=== PATIENT | male | born 1975 | race Caucasian/White ===

== ENCOUNTER 2017-05-07 11:00 | Inpatient (IN) | payer SELFPAY ==
[2017-05-07 15:04] VITALS: BMI 20.6
--- NOTE | 2017-05-07 22:11 | HP ---
COWS - Scale Resting Pulse: 0= [place] 80 or Below Sweatin=Flushed/Facial Moisture Restless Observation: 3= Extraneous Movement Pupil Size: 0= Normal to Room Light Bone or Joint Aches: 1= Mild Discomfort Runny Nose/ Eye Tearin= Runny Nose/Eyes GI Upset > 30mins: 3= Vomiting/Diarrhea (2x) Tremor Observation: 1= Tremor [place], Not Seen Yawning Observation: 4= Several Times/Minute Anxiety or Irritability: 1=Feels Anxious/Irritable Goose Flesh Skin: 3=Piloerection COWS Score: 20 Admission ROS [facility] - [facility] Chief Complaint: Heroin withdrawal symptoms Allergies/Adverse Reactions: Allergies Allergy/AdvReac Type Severity Reaction Status Date / Time No Known Allergies Allergy Verified 05/07/17 17:24 History of Present Illness: 41 yo male with hx of IV heroin and nicotine dependence is here seeking detox. PMHX: depression. Reports overdose x 5, last overdose 2 months ago. Last detox 6 months ago, unable to recall. Reports longest period of sobriety 2 years ago while in skilled nursing . Denies suicidal / homicidal ideation or suicide attempts. Exam Limitations: No Limitations - Ebola screening Have you traveled outside of the country in the last 21 days: No Have you had contact with anyone from an Ebola affected area: No Have you been sick,other than usual withdrawal symptoms: No - Review of Systems Constitutional: Chills, Loss of Appetite, Changes in sleep, Weakness, Unintentional Wgt. Loss EENT: reports: No Symptoms Reported Respiratory: reports: No Symptoms reported Cardiac: reports: No Symptoms Reported GI: reports: Diarrhea, Nausea, Poor Appetite, Poor Fluid Intake, Vomiting, Indigestion, Abdominal cramping : reports: No Symptoms Reported Musculoskeletal: reports: Joint Pain Integumentary: reports: No Symptoms Reported Neuro: reports: No Symptoms reported Endocrine: reports: Excessive Sweating, Change in Weight Hematology: reports: No Symptoms Reported Psychiatric: reports: Orientated x3, Agitated Other Systems: Reviewed and Negative Patient History - Patient Medical History Hx Anemia: No Hx Asthma: No Hx Chronic Obstructive Pulmonary Disease (COPD): No Hx Cancer: No Hx Cardiac Disorders: No Hx Congestive Heart Failure: No Hx Hypertension: No Hx Hypercholesterolemia: No Hx Pacemaker: No HX Cerebrovascular Accident: No Hx Seizures: No Hx Diabetes: No Hx Gastrointestinal Disorders: No Hx Liver Disease: Yes (Hep C ) Hx Genitourinary Disorders: No Hx Sexually Transmitted Disorders: No Hx Renal Disease (ESRD): No Hx Thyroid Disease: No Hx Human Immunodeficiency Virus (HIV): No Hx Hepatitis C: Yes Hx Depression: No Hx Suicide Attempt: No Hx Bipolar Disorder: No Hx Schizophrenia: No - Patient Surgical History Past Surgical History: No Hx Neurologic Surgery: No Hx Cataract Extraction: No Hx Cardiac Surgery: No Hx Lung Surgery: No Hx Breast Surgery: No Hx Breast Biopsy: No Hx Abdominal Surgery: No Hx Appendectomy: No Hx Cholecystectomy: No Hx Genitourinary Surgery: No Hx Section: No Hx Orthopedic Surgery: No Anesthesia Reaction: No - PPD History Previous Implant?: Yes Documented Results: Negative w/o proof PPD to be Administered?: Yes - Reproductive History Patient is a Female of Child Bearing Age (11 -55 yrs old): No - Smoking Cessation Smoking history: Current every day smoker Have you smoked in the past 12 months: Yes Aproximately how many cigarettes per day: 20 Hx Chewing Tobacco Use: No Initiated information on smoking cessation: Yes 'Breaking Loose' booklet given: 05/07/17 - Substance & Tx. History Hx Alcohol Use: Yes Substance Use Type: Cocaine, Heroin Hx Substance Use Treatment: Yes (Six months ago, does not recall the name of the facility ) - Substances Abused Heroin Route: Injection Frequency: Daily Amount used: 12 bags Age of first use: 33 Date of Last Use: 05/06/17 Cocaine Frequency: Daily Amount used: 3 bags Age of first use: 15 Date of Last Use: 05/06/17 Family Disease History - Family Disease History Family Disease History: Other: Father (, Cancer ), Mother (decrease, Cancer ) Admission Physical Exam BHS - Vital Signs Vital Signs: Vital Signs - 24 hr 05/07/17 15:02 Temperature 97.2 F L Pulse Rate 63 Respiratory 20 Rate Blood Pressure 83/48 - Physical General Appearance: Yes: Disheveled, Moderate Distress, Thin, Irritable, Sweating, Anxious HEENTM: Yes: EOMI, Hearing grossly Normal, Normal ENT Inspection, Normocephalic , Normal Voice, ADELINE, Pharynx Normal, Tm's normal Respiratory: Yes: Chest Non-Tender, Normal Breath Sounds, No Respiratory Distress, No Accessory Muscle Use Neck: Yes: No masses,lesions,Nodules, Trachea in good position Breast: Yes: Breast Exam Deferred Cardiology: Yes: Regular Rhythm, Regular Rate Abdominal: Yes: Normal Bowel Sounds, Non Tender, Flat, Soft Genitourinary: Yes: Within Normal Limits Back: Yes: Normal Inspection Musculoskeletal: Yes: full range of Motion, Gait Steady, Pelvis Stable Extremities: Yes: Normal Capillary Refill, Normal Inspection, Normal Range of Motion, Non-Tender, Tremors Neurological: Yes: Within Normal Limits, supervisor communications and signals II-XII NML intact, Fully Oriented, Alert, Motor Strength 5/5, Depressed Affect Integumentary: Yes: Normal Color, Dry, Warm, Track Eldridge (multiple healing states on both forearms without signs of infection) Lymphatic: Yes: Within Normal Limits - Diagnostic (1) IV drug user Current Visit: Yes Status: Acute (2) Irritable mood Current Visit: Yes Status: Acute (3) Opioid dependence with withdrawal Current Visit: Yes Status: Acute (4) Weight loss Current Visit: Yes Status: Acute (5) Dehydration Current Visit: Yes Status: Acute (6) Diarrhea Current Visit: Yes Status: Acute Qualifiers: Diarrhea type: unspecified type Qualified Code(s): R19.7 - Diarrhea, unspecified (7) Cocaine dependence Current Visit: Yes Status: Acute Qualifiers: Substance use status: uncomplicated Qualified Code(s): F14.20 - Cocaine dependence, uncomplicated Cleared for Admission [facility] - Detox or Rehab [facility] Level of Care: Medically Managed Detox Regimen/Protocol: Methadone [facility] Breath Alcohol Content Breath Alcohol Content: 0 Urine Drug Screen - Results Drug Screen Negative: No Urine Drug Screen Results: THC-Marijuana, STEVEN-Cocaine, OPI-Opiates
[2017-05-07] MEDS ORDERED: P-EPHED 60MG/TRIPROLIDI 2.5MG TABLET PO PRN (22:15)
[2017-05-07] MEDS ORDERED: MAGNESIUM CITRATE 300 ML BOTTLE PO PRN (22:15)
[2017-05-07] MEDS ORDERED: MAGNESIUM HYDROX 2400MG/30ML ORAL SUSPENSION 30 ML CUP PO PRN (22:15)
[2017-05-07] MEDS ORDERED: guaiFENesin/D-METHORPHAN HB 10 ML UNIT-DOSE CUPS PO PRN (22:15)
[2017-05-07] MEDS ORDERED: MENTHOL/PHENOL 1 EACH UD MM PRN (22:15)
[2017-05-07] MEDS ORDERED: LOPERAMIDE HCL 2 MG CAPSULE PO PRN (22:15)
[2017-05-07] MEDS ORDERED: IBUPROFEN 400 MG TABLET (FP) PO PRN (22:15)
[2017-05-07] MEDS ORDERED: MAG HYDROX/AL HYDROX/SIMETH 30 ML UNIT-DOSE CUP PO PRN (22:15)
[2017-05-07] MEDS ORDERED: NICOTINE POLACRILEX 2 MG GUM BC PRN (22:15)
[2017-05-07] MEDS ORDERED: METHADONE HCL 10 MG TABLET (FOR DETOX USE ONLY) PO ONE ×2 (22:15→23:00)
[2017-05-07] MEDS: diazePAM 5 MG TABLET PO PRN (22:46)
[2017-05-08] MEDS ORDERED: METHADONE HCL 10 MG TABLET (FOR DETOX USE ONLY) PO ONE (10:00)
[2017-05-08 10:41] LABS: CHLORIDE 108 mmol/L (98-107); POTASSIUM 3.9 mmol/L (3.5-5.1); SODIUM 142 mmol/L (136-145)
--- NOTE | 2017-05-08 10:47 | EKG ---
Test Reason : Blood Pressure : / mmHG Vent. Rate : 075 BPM Atrial Rate : 075 BPM P-R Int : 154 ms QRS Dur : 088 ms QT Int : 408 ms P-R-T Axes : 063 058 044 degrees QTc Int : 455 ms NORMAL SINUS RHYTHM POSSIBLE LEFT ATRIAL ENLARGEMENT BORDERLINE ECG NO PREVIOUS ECGS AVAILABLE Confirmed by CHARLES CHA, ZOE ([id number]) on 05/08/2017 10:46:45 AM Referred By: Confirmed By:ZOE SOTO MD
[2017-05-08 10:49] LABS: ALBUMIN 3.3 g/dl (3.4-5.0); ALK PHOS 61 U/L (45-117); ANION GAP 11 (8-16); BILIRUBIN,TOTAL 0.5 mg/dL (0.2-1.0); BLOOD UREA NITROGEN 13 mg/dL (7-18); CALCIUM 8.4 mg/dL (8.5-10.1); CO2 23 mmol/L (21-32); CREATININE 0.7 mg/dL (0.7-1.3); GLUCOSE,RANDOM 83 mg/dL (74-106); SGOT/AST 53 U/L (15-37); SGPT/ALT 119 U/L (12-78); TOT PROT 7.2 g/dl (6.4-8.2)
[2017-05-08] MEDS: PRENATAL VITAMINS W/ FOLIC ACID TABLET (FP) PO SCH (11:00)
[2017-05-08] MEDS: NICOTINE 21 MG/24 HOURS TOPICAL PATCH TD SCH ×2 (11:00)
--- NOTE | 2017-05-08 11:27 | CONSULT ---
[facility] Psychiatric Consult - Data Date of interview: 05/08/17 Admission source: [facility] Identifying data: First admission to [facility] for this 41 y/o male seeking detox treatment on for heroin,cannabis and cocaine dependence.Patient introduces self as ,a father of two,domiciled, unemployed and supported on food stamps. Substance Abuse History: Discussed in this interview.Mr Lebron declines to provide details about his addictions.Simply admits to using heroin,marihuana and cocaine " for a long time." Refer to current [facility] report for more information : Smoking history: Current every day smoker. Have you smoked in the past 12 months: Yes. Aproximately how many cigarettes per day: 20. Hx Chewing Tobacco Use: No. Initiated information on smoking cessation: Yes. ' Breaking Loose' booklet given: 05/07/17. - Substance & Tx. History. Hx Alcohol Use: Yes. Substance Use Type: Cocaine, Heroin. Hx Substance Use Treatment: Yes (Six months ago, does not recall the name of the facility ). - Substances Abused. Heroin. Route: Injection. Frequency: Daily. Amount used: 12 bags. Age of first use: 33. Date of Last Use: 05/06/17. Cocaine. Frequency: Daily. Amount used: 3 bags. Age of first use: 15. Date of Last Use: 05/06/17 Medical History: Hepatitis C. Psychiatric History: Patient denies. Physical/Sexual Abuse/Trauma History: Patient denies. Additional Comment: Urine Drug Screen Results: THC-Marijuana, STEVEN-Cocaine, OPI- Opiates.Noted. Mental Status Exam - Mental Status Exam Alert and Oriented to: Time, Place, Person Cognitive Function: Grossly Intact Patient Appearance: Unkempt, Disheveled Mood: Hostile, Nervous, Withdrawn, Irritable Affect: Mood Congruent Patient Behavior: Fatigued, Uncooperative Speech Pattern: Clear (bilingual) Voice Loudness: Normal Thought Process: Goal Oriented Thought Disorder: Not Present Hallucinations: Denies Suicidal Ideation: Denies Homicidal Ideation: Denies Insight/Judgement: Poor Sleep: Well Appetite: Good (empty foodtray still at bedside) Gait/Station: Other (not observed ; in bed during conversation with independent consultant) Psychiatric Findings - Problem List ([place] 1, 2,3) (1) Opioid dependence with withdrawal Current Visit: Yes Status: Acute (2) Cocaine dependence Current Visit: Yes Status: Acute Qualifiers: Substance use status: uncomplicated Qualified Code(s): F14.20 - Cocaine dependence, uncomplicated (3) Cannabis abuse Current Visit: Yes Status: Acute (4) Nicotine dependence Current Visit: Yes Status: Acute - Initial Treatment Plan Initial Treatment Plan: Psychoeducation.Detoxification in progress.Observation.
[2017-05-08 11:38] LABS: HEMATOCRIT 39.6 % (35.4-49); HEMOGLOBIN 13.6 GM/dL (11.7-16.9); MCH 28.7 pg (25.7-33.7); MCHC 34.5 g/dl (32.0-35.9); MEAN CELL VOLUME 83.2 fl (80-96); MEAN PLT VOLUME 7.7 fl (7.5-11.1); PLATELET COUNT 230 K/MM3 (134-434); RBC 4.75 M/mm3 (4.00-5.60); RDW 15.9 % (11.9-15.9); WHITE BLOOD COUNT 7.9 K/mm3 (4.0-10.0)
--- NOTE | 2017-05-08 12:20 | PN ---
BHS COWS - Scale Resting Pulse: 0= [place] 80 or Below Sweatin= Chills/Flushing Restless Observation: 1= Difficult to Sit Still Pupil Size: 0= Normal to Room Light Bone or Joint Aches: 0= None Runny Nose/ Eye Tearin= Nasal Congestion GI Upset > 30mins: 1= Stomach Cramp Tremor Observation of Outstretched Hands: 2= Slight Tremor Visible Yawning Observation: 1= 1-2x During Session Anxiety or Irritability: 2=Irritable/Anxious Goose Flesh Skin: 3=Piloerection COWS Score: 12 BHS Progress Note (SOAP) Subjective: Fatigue, Anxious, Tremors, Interrupted Sleep. Objective: PATIENT A & O X 2 (UNCERTAIN ABOUT CURRENT DAY / DATE). PATIENT OBSERVED AMBULATING ON UNIT. NO ACUTE DISTRESS. 05/08/17 12:17 Vital Signs Temperature 97.6 F 05/08/17 06:20 Pulse Rate 61 05/08/17 06:20 Respiratory Rate 18 05/08/17 06:20 Blood Pressure 103/64 05/08/17 06:20 O2 Sat by Pulse Oximetry (%) Laboratory Tests 05/08/17 05/08/17 05/08/17 07:00 07:00 07:00 WBC 7.9 RBC 4.75 Hgb 13.6 Hct 39.6 MCV 83.2 MCH 28.7 MCHC 34.5 RDW 15.9 Plt Count 230 MPV 7.7 Sodium 142 Potassium 3.9 Chloride 108 H Carbon Dioxide 23 Anion Gap 11 BUN 13 Creatinine 0.7 Creat Clearance w eGFR > 60 Random Glucose 83 Calcium 8.4 L Total Bilirubin 0.5 AST 53 H ALT 119 H Alkaline Phosphatase 61 Total Protein 7.2 Albumin 3.3 L RPR Titer Nonreactive LABS NOTED. UA RESULTS PENDING. 05/08/17 12:19 Assessment: 05/08/17 12:19 WITHDRAWAL SYMPTOMS. Plan: CONTINUE DETOX.
[2017-05-08] MEDS: diazePAM 5 MG TABLET PO PRN (22:08)
[2017-05-08] MEDS: THIAMINE HCL 100 MG TABLET (FP) PO SCH (22:08)
[2017-05-09] MEDS ORDERED: METHADONE HCL 5 MG TABLET (FOR DETOX USE ONLY) PO ONE (10:00)
[2017-05-09] MEDS: NICOTINE 21 MG/24 HOURS TOPICAL PATCH TD SCH (10:55)
[2017-05-09] MEDS: diazePAM 5 MG TABLET PO PRN (10:55)
[2017-05-09] MEDS: PRENATAL VITAMINS W/ FOLIC ACID TABLET (FP) PO SCH (10:55)
--- NOTE | 2017-05-09 16:57 | PN ---
BHS COWS - Scale Resting Pulse: 1= [place] 81-100 Sweatin=Flushed/Facial Moisture Restless Observation: 0= Sits Still Pupil Size: 0= Normal to Room Light Bone or Joint Aches: 2= Severe Diffuse Aches Runny Nose/ Eye Tearin= None GI Upset > 30mins: 2= Nausea/Diarrhea Tremor Observation of Outstretched Hands: 2= Slight Tremor Visible Yawning Observation: 1= 1-2x During Session Anxiety or Irritability: 4=Extreme Anxiety Goose Flesh Skin: 0=Smooth Skin COWS Score: 14 BHS Progress Note (SOAP) Subjective: Tremors, Sweating, Anxious, Fatigue, Interrupted Sleep. Objective: PATIENT A & O X 3, OBSERVED AMBULATING ON UNIT. NO ACUTE DISTRESS. 05/09/17 16:55 Vital Signs Temperature 96.7 F L 05/09/17 14:45 Pulse Rate 93 H 05/09/17 14:45 Respiratory Rate 18 05/09/17 14:45 Blood Pressure 118/77 05/09/17 14:45 O2 Sat by Pulse Oximetry (%) Laboratory Tests 05/08/17 05/08/17 05/08/17 07:00 07:00 07:00 WBC 7.9 RBC 4.75 Hgb 13.6 Hct 39.6 MCV 83.2 MCH 28.7 MCHC 34.5 RDW 15.9 Plt Count 230 MPV 7.7 Sodium 142 Potassium 3.9 Chloride 108 H Carbon Dioxide 23 Anion Gap 11 BUN 13 Creatinine 0.7 Creat Clearance w eGFR > 60 Random Glucose 83 Calcium 8.4 L Total Bilirubin 0.5 AST 53 H ALT 119 H Alkaline Phosphatase 61 Total Protein 7.2 Albumin 3.3 L RPR Titer Nonreactive LABS NOTED. UA RESULTS PENDING. 05/09/17 16:57 Assessment: 05/09/17 16:55 WITHDRAWAL SYMPTOMS. Plan: CONTINUE DETOX.
[2017-05-09] MEDS: ACETAMINOPHEN 325 MG TABLET (FP) PO PRN ×2 (17:53→23:27)
[2017-05-09] MEDS: THIAMINE HCL 100 MG TABLET (FP) PO SCH (23:27)
[2017-05-10] MEDS ORDERED: METHADONE HCL 5 MG TABLET (FOR DETOX USE ONLY) PO ONE (10:00)
[2017-05-10] MEDS ORDERED: TRIMETHOBENZAMIDE HCL 200MG/2ML INJ IM PRN (10:55)
[2017-05-10] MEDS: NICOTINE 21 MG/24 HOURS TOPICAL PATCH TD SCH (11:07)
[2017-05-10] MEDS: PRENATAL VITAMINS W/ FOLIC ACID TABLET (FP) PO SCH (11:07)
--- NOTE | 2017-05-10 16:45 | PN ---
BHS Progress Note (SOAP) Subjective: Body Aches, Anxious, Sweating, Fatigue, Vomiting, Diarrhea. Objective: PATIENT A & O X 2 (UNCERTAIN ABOUT CURRENT DAY / DATE) PATIENT OBSERVED AMBULATING ON UNIT. NO ACUTE DISTRESS. 05/10/17 16:41 Vital Signs Temperature 97.7 F 05/10/17 06:39 Pulse Rate 95 H 05/10/17 06:39 Respiratory Rate 19 05/10/17 06:39 Blood Pressure 101/63 05/10/17 06:39 O2 Sat by Pulse Oximetry (%) Laboratory Tests 05/08/17 05/08/17 05/08/17 07:00 07:00 07:00 WBC 7.9 RBC 4.75 Hgb 13.6 Hct 39.6 MCV 83.2 MCH 28.7 MCHC 34.5 RDW 15.9 Plt Count 230 MPV 7.7 Sodium 142 Potassium 3.9 Chloride 108 H Carbon Dioxide 23 Anion Gap 11 BUN 13 Creatinine 0.7 Creat Clearance w eGFR > 60 Random Glucose 83 Calcium 8.4 L Total Bilirubin 0.5 AST 53 H ALT 119 H Alkaline Phosphatase 61 Total Protein 7.2 Albumin 3.3 L RPR Titer Nonreactive LABS NOTED. UA RESULTS PENDING. 05/10/17 16:44 Assessment: 05/10/17 16:43 WITHDRAWAL SYMPTOMS. Plan: CONTINUE DETOX. INCREASE DAILY PO FLUID INTAKE. PRN TIGAN FOR NAUSEA / VOMITING. PRN IMMODIUM FOR DIARRHEA.
[2017-05-10] MEDS: THIAMINE HCL 100 MG TABLET (FP) PO SCH (22:39)
[2017-05-10] MEDS: hydrOXYzine PAMOATE 50 MG CAPSULE (FP) PO PRN (22:41)
[2017-05-11] MEDS: hydrOXYzine PAMOATE 50 MG CAPSULE (FP) PO PRN (03:02)
[2017-05-11] MEDS ORDERED: METHADONE HCL 10 MG TABLET (FOR DETOX USE ONLY) PO ONE (10:00)
[2017-05-11] MEDS: NICOTINE 21 MG/24 HOURS TOPICAL PATCH TD SCH (10:20)
[2017-05-11] MEDS: PRENATAL VITAMINS W/ FOLIC ACID TABLET (FP) PO SCH (10:20)
--- NOTE | 2017-05-11 17:53 | PN ---
S Progress Note (SOAP) Subjective: Fatigue, Sweating, Diarrhea. Objective: PATIENT A & O X 3, OBSERVED AMBULATING ON UNIT. NO ACUTE DISTRESS. 05/11/17 17:51 Vital Signs Temperature 98.7 F 05/11/17 11:01 Pulse Rate 80 05/11/17 11:01 Respiratory Rate 20 05/11/17 11:01 Blood Pressure 98/66 05/11/17 11:01 O2 Sat by Pulse Oximetry (%) Laboratory Tests 05/08/17 05/08/17 05/08/17 07:00 07:00 07:00 WBC 7.9 RBC 4.75 Hgb 13.6 Hct 39.6 MCV 83.2 MCH 28.7 MCHC 34.5 RDW 15.9 Plt Count 230 MPV 7.7 Sodium 142 Potassium 3.9 Chloride 108 H Carbon Dioxide 23 Anion Gap 11 BUN 13 Creatinine 0.7 Creat Clearance w eGFR > 60 Random Glucose 83 Calcium 8.4 L Total Bilirubin 0.5 AST 53 H ALT 119 H Alkaline Phosphatase 61 Total Protein 7.2 Albumin 3.3 L RPR Titer Nonreactive LABS NOTED. Assessment: 05/11/17 17:52 WITHDRAWAL SYMPTOMS. Plan: CONTINUE DETOX. INCREASE DAILY PO FLUID INTAKE. PRN IMMODIUM FOR DIARRHEA.
[2017-05-11] MEDS: THIAMINE HCL 100 MG TABLET (FP) PO SCH (23:09)
[2017-05-12] MEDS ORDERED: METHADONE HCL 5 MG TABLET (FOR DETOX USE ONLY) PO ONE (06:00)
[2017-05-12 06:39] VITALS: BP 111/70; PULSE 87; TEMP 97.1
--- NOTE | 2017-05-12 12:16 | DS ---
[facility] Detox Discharge Summary Admission Date: 05/07/17 Discharge Date: 05/12/17 - History Present History: Cocaine Dependence, Opioid Dependence Pertinent Past History: Denies - Physical Exam Results Vital Signs: Vital Signs Temperature 97.1 F L 05/12/17 06:38 Pulse Rate 87 05/12/17 06:38 Respiratory Rate 16 05/12/17 06:38 Blood Pressure 111/70 05/12/17 06:38 O2 Sat by Pulse Oximetry (%) Pertinent Admission Physical Exam Findings: Withdrawal symptoms Laboratory Tests 05/08/17 05/08/17 05/08/17 07:00 07:00 07:00 WBC 7.9 RBC 4.75 Hgb 13.6 Hct 39.6 MCV 83.2 MCH 28.7 MCHC 34.5 RDW 15.9 Plt Count 230 MPV 7.7 Sodium 142 Potassium 3.9 Chloride 108 H Carbon Dioxide 23 Anion Gap 11 BUN 13 Creatinine 0.7 Creat Clearance w eGFR > 60 Random Glucose 83 Calcium 8.4 L Total Bilirubin 0.5 AST 53 H ALT 119 H Alkaline Phosphatase 61 Total Protein 7.2 Albumin 3.3 L RPR Titer Nonreactive Labs reviewed - Treatment Hospital Course: Detox Protocol Followed, Detoxed Safely, Responded well, Discharged Condition Good - Medication Discharge Medications: Ambulatory Orders NK [No Known Home Medication] 05/07/17 - Diagnosis (1) Cocaine dependence Status: Chronic Qualifiers: Substance use status: uncomplicated Qualified Code(s): F14.20 - Cocaine dependence, uncomplicated (2) Nicotine dependence Status: Chronic Qualifiers: Nicotine product type: cigarettes Substance use status: uncomplicated Qualified Code(s): F17.210 - Nicotine dependence, cigarettes, uncomplicated (3) Opioid dependence with withdrawal Status: Acute - AMA Did Patient Leave Against Medical Advice: No (Follow up with your PCP within 1- 2 weeks)
== END 2017-05-12 11:20 | disposition home or self-care (01) | DRG 773 ==
LOC: YASAS 11:00 → Y3N 17:36
PROVIDERS: ADMIT Internal Medicine; ATTEND Internal Medicine
PROC: HZ2ZZZZ Detoxification Services for Substance Abuse Treatment (ICD-10-PCS; principal; 2017-05-07)
DX: F11.23 Opioid dependence with withdrawal (principal); F14.20 Cocaine dependence, uncomplicated; F17.210 Nicotine dependence, cigarettes, uncomplicated; R45.4 Irritability and anger; E86.0 Dehydration; R19.7 Diarrhea, unspecified; R63.4 Abnormal weight loss; Z68.20 Body mass index [BMI] 20.0-20.9, adult; Z59.0 Homelessness
CPT/HCPCS: 36415; 80053; 85027; 86593; 93005; 93010

== ENCOUNTER 2018-03-20 13:09 | Inpatient (IN) | payer SELFPAY ==
[2018-03-20 15:42] VITALS: BMI 21.9
--- NOTE | 2018-03-20 16:03 | HP ---
COWS - Scale Resting Pulse: 1= [place] 81-100 Sweatin=Flushed/Facial Moisture Restless Observation: 1= Difficult to Sit Still Pupil Size: 1= Pupils >than Normal Bone or Joint Aches: 2= Severe Diffuse Aches Runny Nose/ Eye Tearin= Runny Nose/Eyes GI Upset > 30mins: 2= Nausea/Diarrhea Tremor Observation: 0= None Yawning Observation: 0= None Anxiety or Irritability: 2=Irritable/Anxious Goose Flesh Skin: 0=Smooth Skin COWS Score: 13 CIWA Score - Admission Criteria [facility] Guidelines: Admission for Medically Managed Detox: Requires at least one of the followin. CIWA greater than 12 2. Seizures within the past 24 hours 3. Delirium tremens within the past 24 hours 4. Hallucinations within the past 24 hours 5. Acute intervention needed for co occurring medical disorder 6. Acute intervention needed for co occurring psychiatric disorder 7. Severe withdrawal that cannot be handled at a lower level of care (continued vomiting, continued diarrhea, abnormal vital signs) requiring intravenous medication and/or fluids 8. Admission ROS [facility] - HPI Allergies/Adverse Reactions: Allergies Allergy/AdvReac Type Severity Reaction Status Date / Time No Known Allergies Allergy Verified 05/07/17 17:24 History of Present Illness: patient here requesting detox from heroin use , reports 2 bundles/ day since 8 years ago , IVDU w/ needles from the exchange denies sharing or re-using, denies abscess, + OD x 5 most recently 6 mo ago , Narcan by EMS , prior detox x 5 most recently 6 mo ago does not recall where . Latest use this morning, current symptoms above . IVDU in R UE tobacco : 1/2 ppd since age 13 cannabis : since age 13 PMHX : hep C dx 8 years ago no tx , plans to seek tx PSHx : mastoiditis 25 years ago PSych : denies , denies current SI / HI SHx : homeless , unemployed , denies legal issues Exam Limitations: Clinical Condition - Ebola screening Have you traveled outside of the country in the last 21 days: No Have you had contact with anyone from an Ebola affected area: No Have you been sick,other than usual withdrawal symptoms: No - Review of Systems Constitutional: See HPI EENT: reports: See HPI, Other (denies vision loss, denies dysphagia) Respiratory: reports: No Symptoms reported Cardiac: reports: No Symptoms Reported GI: reports: See HPI : reports: No Symptoms Reported Musculoskeletal: reports: Muscle Pain Integumentary: reports: Other (IVDU) Neuro: reports: No Symptoms reported Endocrine: reports: No Symptoms Reported Psychiatric: reports: Orientated x3, Anxious Patient History - Patient Medical History Hx Anemia: No Hx Asthma: No Hx Chronic Obstructive Pulmonary Disease (COPD): No Hx Cancer: No Hx Cardiac Disorders: No Hx Congestive Heart Failure: No Hx Hypertension: No Hx Hypercholesterolemia: No Hx Pacemaker: No HX Cerebrovascular Accident: No Hx Seizures: No Hx Diabetes: No Hx Gastrointestinal Disorders: No Hx Liver Disease: Yes (Hep C ) Hx Genitourinary Disorders: No Hx Sexually Transmitted Disorders: No Hx Renal Disease (ESRD): No Hx Thyroid Disease: No Hx Human Immunodeficiency Virus (HIV): No Hx Hepatitis C: Yes Hx Depression: No Hx Suicide Attempt: No Hx Bipolar Disorder: No Hx Schizophrenia: No - Patient Surgical History Past Surgical History: No Hx Neurologic Surgery: No Hx Cataract Extraction: No Hx Cardiac Surgery: No Hx Lung Surgery: No Hx Breast Surgery: No Hx Breast Biopsy: No Hx Abdominal Surgery: No Hx Appendectomy: No Hx Cholecystectomy: No Hx Genitourinary Surgery: No Hx Section: No Hx Orthopedic Surgery: No Anesthesia Reaction: No - PPD History Date: 05/09/17 - Smoking Cessation Smoking history: Current every day smoker Have you smoked in the past 12 months: Yes Aproximately how many cigarettes per day: 20 Hx Chewing Tobacco Use: No Initiated information on smoking cessation: No - Substances Abused Heroin Route: Injection Frequency: Daily Amount used: 20 BAGS Age of first use: 38 Date of Last Use: 03/20/18 Marijuana/Hashish Route: Smoking Frequency: 1-2 times per week Amount used: 2 BAGS Age of first use: 14 Date of Last Use: 03/20/18 Family Disease History - Family Disease History Family Disease History: Other: Father (, Cancer ), Mother (decrease, Cancer ) Admission Physical Exam BHS - Vital Signs Vital Signs: Vital Signs - 24 hr 03/20/18 15:40 Temperature 99.7 F H Pulse Rate 87 Respiratory 18 Rate Blood Pressure 98/67 - Physical General Appearance: Yes: Disheveled, Moderate Distress, Anxious HEENTM: Yes: EOMI, Normocephalic, Normal Voice Respiratory: Yes: Chest Non-Tender, Lungs Clear, Normal Breath Sounds Neck: Yes: No masses,lesions,Nodules, Trachea in good position Cardiology: Yes: Regular Rhythm, Regular Rate, S1, S2 Abdominal: Yes: Non Tender, Soft Back: Yes: Normal Inspection Musculoskeletal: Yes: full range of Motion, Gait Steady Extremities: Yes: Normal Range of Motion, Non-Tender, Tremors Neurological: Yes: Fully Oriented, Motor Strength 5/5 Integumentary: Yes: Normal Color, Track Eldridge, Other (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 , mother has same issue , " comes and goes " area of erythema ,large palpable mass on volar aspect of the wrist , non- tender, no induration , no d/c .) - Diagnostic (1) Cannabis abuse Current Visit: No Status: Acute (2) Opioid dependence with withdrawal Current Visit: No Status: Acute (3) Nicotine dependence Current Visit: No Status: Chronic Qualifiers: Nicotine product type: cigarettes Substance use status: uncomplicated Qualified Code(s): F17.210 - Nicotine dependence, cigarettes, uncomplicated BHS Breath Alcohol Content Breath Alcohol Content: 0 Urine Drug Screen - Results Drug Screen Negative: No Urine Drug Screen Results: THC-Marijuana, OPI-Opiates
[2018-03-20] MEDS ORDERED: P-EPHED 60MG/TRIPROLIDI 2.5MG TABLET PO PRN (16:07)
[2018-03-20] MEDS ORDERED: ACETAMINOPHEN 325 MG TABLET (FP) PO PRN (16:07)
[2018-03-20] MEDS ORDERED: guaiFENesin/D-METHORPHAN HB 10 ML UNIT-DOSE CUPS PO PRN (16:07)
[2018-03-20] MEDS ORDERED: diazePAM 5 MG TABLET PO PRN (16:07)
[2018-03-20] MEDS ORDERED: MAG HYDROX/AL HYDROX/SIMETH 30 ML UNIT-DOSE CUP PO PRN (16:07)
[2018-03-20] MEDS ORDERED: MENTHOL/PHENOL 1 EACH UD MM PRN (16:07)
[2018-03-20] MEDS ORDERED: MAGNESIUM CITRATE 300 ML BOTTLE PO PRN (16:07)
[2018-03-20] MEDS ORDERED: IBUPROFEN 400 MG TABLET (FP) PO PRN (16:07)
[2018-03-20] MEDS ORDERED: hydrOXYzine PAMOATE 25 MG CAPSULE (FP) PO PRN (16:07)
[2018-03-20] MEDS ORDERED: MAGNESIUM HYDROX 2400MG/30ML ORAL SUSPENSION 30 ML CUP PO PRN (16:07)
[2018-03-20] MEDS ORDERED: NICOTINE POLACRILEX 2 MG GUM BC PRN (16:07)
[2018-03-20] MEDS ORDERED: cloNIDine HCL 0.1 MG TABLET PO PRN (16:12)
[2018-03-20] MEDS ORDERED: METHADONE HCL 10 MG TABLET (FOR DETOX USE ONLY) PO ONE ×2 (17:45→23:00)
[2018-03-20] MEDS ORDERED: MELATONIN 5 MG TABLETS PO PRN (22:00)
[2018-03-20] MEDS: THIAMINE HCL 100 MG TABLET (FP) PO SCH (22:24)
[2018-03-21] MEDS ORDERED: TRIMETHOBENZAMIDE HCL 200MG/2ML INJ IM ONE (07:05)
--- NOTE | 2018-03-21 07:07 | PN ---
S Progress Note Note: Patient complained of vomiting. Vital Signs Temp 97.1 F L 03/21/18 06:14 Pulse 81 03/21/18 06:14 Resp 18 03/21/18 06:14 BP 105/68 03/21/18 06:14 Pulse Ox Intake & Output 03/20/18 03/20/18 03/21/18 11:59 23:59 11:59 Weight 144 lb Other: Voiding Method Toilet Height 5 ft 8 in Body Mass Index (BMI) 21.9 Weight Measurement Method Standing Scale Action: Tigan 200mg intramuscular ordered
[2018-03-21] MEDS ORDERED: ONDANSETRON *ODT* 4 MG TABLET SL ONE (09:00)
[2018-03-21] MEDS ORDERED: METHADONE DETOX 10 MG/1 ML [20ML VIAL] IM ONE (09:06)
[2018-03-21] MEDS ORDERED: METHADONE HCL 10 MG TABLET (FOR DETOX USE ONLY) PO ONE (10:00)
[2018-03-21] MEDS: PRENATAL VITAMINS W/ FOLIC ACID TABLET (FP) PO SCH (11:00)
[2018-03-21] MEDS: diazePAM 5 MG TABLET PO PRN ×3 (11:17→22:27)
--- NOTE | 2018-03-21 11:28 | PN ---
BHS COWS - Scale Resting Pulse: 0= [place] 80 or Below Sweatin= Chills/Flushing Restless Observation: 1= Difficult to Sit Still Pupil Size: 0= Normal to Room Light Bone or Joint Aches: 2= Severe Diffuse Aches Runny Nose/ Eye Tearin= Nasal Congestion GI Upset > 30mins: 5=Frequent Vomit/Diarrhea Tremor Observation of Outstretched Hands: 2= Slight Tremor Visible Yawning Observation: 0= None Anxiety or Irritability: 4=Extreme Anxiety Goose Flesh Skin: 0=Smooth Skin COWS Score: 16 BHS Progress Note (SOAP) Subjective: Tremors, Body Aches, Vomiting, Diarrhea, Interrupted Sleep. Objective: PATIENT A & O X 3, OBSERVED AMBULATING ON UNIT. 03/21/18 11:26 Vital Signs Temperature 98.6 F 03/21/18 10:29 Pulse Rate 70 03/21/18 10:29 Respiratory Rate 18 03/21/18 10:29 Blood Pressure 134/76 03/21/18 10:29 O2 Sat by Pulse Oximetry (%) ADMISSION LAB RESULTS PENDING. 03/21/18 11:27 Assessment: 03/21/18 11:27 WITHDRAWAL SYMPTOMS. VOMITING. Plan: CONTINUE DETOX. PATIENT REPORTS THAT VOMITING IS SEVERE AND FREQUENT (PATIENT WITNESSED VOMITING EARLIER THIS AM). PATIENT REPORTS THAT X 1 DOSE OF TIGAN IM ADMINISTERED EARLIER THIS AM WAS INEFFECTIVE. ZOFRAN SL X 1, THEN PRN ORDERED FOR VOMITING. X 1 DOSE OF IM METHADONE ORDERED FOR TODAY TO REPLACE SCHEDULED PO DOSE. PATIENT ALSO REPORTED "HE FELT LIKE HIS HEART WAS RACING." ECG ORDERED, HOWEVER PATIENT REFUSED TO HAVE DONE, STATING THAT HE BELIEVED THAT THE FEELING WAS ONLY DUE TO WITHDRAWAL. PRN VALIUM ORDERED FOR 2 DAYS FOR SEVERE ANXIETY AND WITHDRAWAL SYMPTOMS. PATIENT ADVISED TO NOTIFY MEDICAL / NURSING STAFF IMMEDIATELY SHOULD CURRENT WITHDRAWAL SYMPTOMS BECOME MORE SEVERE OR INTOLERABLE OR SHOULD ANY NEW SYMPTOMS DEVELOP AT ANY TIME. PATIENT VERBALIZED UNDERSTANDING OF RECOMMENDATION.
[2018-03-21] MEDS: THIAMINE HCL 100 MG TABLET (FP) PO SCH (22:27)
[2018-03-22] MEDS ORDERED: METHADONE HCL 5 MG TABLET (FOR DETOX USE ONLY) PO ONE (10:00)
[2018-03-22] MEDS: PRENATAL VITAMINS W/ FOLIC ACID TABLET (FP) PO SCH (10:21)
[2018-03-22 11:06] LABS: HEMATOCRIT 44.1 % (35.4-49); HEMOGLOBIN 15.5 GM/dL (11.7-16.9); MCH 29.4 pg (25.7-33.7); MCHC 35.1 g/dl (32.0-35.9); MEAN CELL VOLUME 83.8 fl (80-96); MEAN PLT VOLUME 7.6 fl (7.5-11.1); PLATELET COUNT 335 K/MM3 (134-434); RBC 5.26 M/mm3 (4.00-5.60); RDW 13.3 % (11.9-15.9); WHITE BLOOD COUNT 14.8 K/mm3 (4.0-10.0)
[2018-03-22 11:25] LABS: ALBUMIN 3.4 g/dl (3.4-5.0); ALK PHOS 87 U/L (45-117); ANION GAP 8 MMOL/L (8-16); BILIRUBIN,TOTAL 0.7 mg/dL (0.2-1); BLOOD UREA NITROGEN 13 mg/dL (7-18); CALCIUM 9.4 mg/dL (8.5-10.1); CHLORIDE 104 mmol/L (98-107); CO2 28 mmol/L (21-32); CREATININE 0.9 mg/dL (0.55-1.3); GLUCOSE,RANDOM 100 mg/dL (74-106); POTASSIUM 4.1 mmol/L (3.5-5.1); SGOT/AST 57 U/L (15-37); SGPT/ALT 108 U/L (13-61); SODIUM 140 mmol/L (136-145); TOT PROT 8.1 g/dl (6.4-8.2)
--- NOTE | 2018-03-22 16:09 | PN ---
[facility] COWS - Scale Resting Pulse: 1= AK 81-100 Sweatin= Chills/Flushing Restless Observation: 0= Sits Still Pupil Size: 0= Normal to Room Light Bone or Joint Aches: 2= Severe Diffuse Aches Runny Nose/ Eye Tearin= None GI Upset > 30mins: 2= Nausea/Diarrhea Tremor Observation of Outstretched Hands: 0= None Yawning Observation: 1= 1-2x During Session Anxiety or Irritability: 2=Irritable/Anxious Goose Flesh Skin: 3=Piloerection COWS Score: 12 [facility] Progress Note (SOAP) Subjective: Vomiting( Significantly Improved), Diarrhea, Body Aches, GooseFlesh. Objective: PATIENT A & O X 3, OBSERVED AMBULATING ON UNIT. IN NO ACUTE DISTRESS. 03/22/18 16:07 Vital Signs Temperature 97.8 F 03/22/18 13:43 Pulse Rate 93 H 03/22/18 13:43 Respiratory Rate 16 03/22/18 13:43 Blood Pressure 107/69 03/22/18 13:43 O2 Sat by Pulse Oximetry (%) Laboratory Tests 03/22/18 03/22/18 03/22/18 07:50 07:50 07:50 WBC 14.8 H RBC 5.26 Hgb 15.5 Hct 44.1 MCV 83.8 MCH 29.4 MCHC 35.1 RDW 13.3 D Plt Count 335 D MPV 7.6 Sodium 140 Potassium 4.1 Chloride 104 Carbon Dioxide 28 Anion Gap 8 BUN 13 Creatinine 0.9 Creat Clearance w eGFR > 60 Random Glucose 100 Calcium 9.4 Total Bilirubin 0.7 AST 57 H ALT 108 H Alkaline Phosphatase 87 Total Protein 8.1 Albumin 3.4 RPR Titer Nonreactive LABS NOTED. Assessment: 03/22/18 16:08 WITHDRAWAL SYMPTOMS. LEUKOCYTOSIS. Plan: CONTINUE DETOX. INCREASE DAILY PO FLUID INTAKE. PRN ZOFRAN FOR NAUSEA / VOMITING. REPEAT CBC TOMORROW AM FOR ELEVATED WBC LEVEL.
[2018-03-22] MEDS: diazePAM 5 MG TABLET PO PRN ×2 (18:20→22:24)
[2018-03-22] MEDS: THIAMINE HCL 100 MG TABLET (FP) PO SCH (22:24)
[2018-03-23 09:03] VITALS: BP 123/65; PULSE 90; TEMP 97.4
[2018-03-23] MEDS ORDERED: METHADONE HCL 10 MG TABLET (FOR DETOX USE ONLY) PO ONE (10:00)
[2018-03-23] MEDS: PRENATAL VITAMINS W/ FOLIC ACID TABLET (FP) PO SCH (10:12)
[2018-03-23 11:21] LABS: EOS % 3.1 % (0-4.5); HEMATOCRIT 45.6 % (35.4-49); HEMOGLOBIN 15.6 GM/dL (11.7-16.9); LYMPH % 21.9 % (8-40); MCH 28.8 pg (25.7-33.7); MCHC 34.2 g/dl (32.0-35.9); MEAN CELL VOLUME 84.1 fl (80-96); MEAN PLT VOLUME 7.6 fl (7.5-11.1); MONO % 7.5 % (3.8-10.2); NEUT % 66.5 % (42.8-82.8); PLATELET COUNT 315 K/MM3 (134-434); RBC 5.42 M/mm3 (4.00-5.60); RDW 13.4 % (11.9-15.9); WHITE BLOOD COUNT 12.4 K/mm3 (4.0-10.0)
[2018-03-23 13:03] LABS: PLATELET ESTIMATE ADEQUATE
--- NOTE | 2018-03-23 13:52 | DS ---
[facility] Detox Discharge Summary Admission Date: 03/20/18 Discharge Date: 03/23/18 - History Present History: Opioid Dependence Additional Comments: 42 years old male admitted on 03/20/18 for opiate withdrawal stabilization insists to leave the detox unit that he has "something to do" at home patient had good breakfast reported no longer feeling nausea nor vomiting had shower this morning the patient thanks the services provided for him stated that "things are complicated" patient is alert no acute distress no suicidal ideation Pertinent Past History: discuss medication assisted treatment program - Physical Exam Results Vital Signs: Vital Signs Temperature 97.4 F L 03/23/18 09:02 Pulse Rate 90 03/23/18 09:02 Respiratory Rate 18 03/23/18 09:02 Blood Pressure 123/65 03/23/18 09:02 O2 Sat by Pulse Oximetry (%) Pertinent Admission Physical Exam Findings: opiate withdrawal sx Laboratory Last Values WBC 12.4 K/mm3 (4.0-10.0) H 03/23/18 07:20 RBC 5.42 M/mm3 (4.00-5.60) 03/23/18 07:20 Hgb 15.6 GM/dL (11.7-16.9) 03/23/18 07:20 Hct 45.6 % (35.4-49) 03/23/18 07:20 MCV 84.1 fl (80-96) 03/23/18 07:20 MCH 28.8 pg (25.7-33.7) 03/23/18 07:20 MCHC 34.2 g/dl (32.0-35.9) 03/23/18 07:20 RDW 13.4 % (11.9-15.9) 03/23/18 07:20 Plt Count 315 K/MM3 (134-434) 03/23/18 07:20 MPV 7.6 fl (7.5-11.1) 03/23/18 07:20 Absolute Neuts (auto) 8.3 K/mm3 (1.5-8.0) H 03/23/18 07:20 Total Counted 100 03/23/18 07:20 Neutrophils % 66.5 % (42.8-82.8) 03/23/18 07:20 Neutrophils % (Manual) 60.0 % (42.8-82.8) 03/23/18 07:20 Lymphocytes % 21.9 % (8-40) 03/23/18 07:20 Lymphocytes % (Manual) 24.0 % (8-40) 03/23/18 07:20 Monocytes % 7.5 % (3.8-10.2) 03/23/18 07:20 Monocytes % (Manual) 11 % (3.8-10.2) H 03/23/18 07:20 Eosinophils % 3.1 % (0-4.5) 03/23/18 07:20 Eosinophils % (Manual) 2.0 % (0-4.5) 03/23/18 07:20 Basophils % 1.0 % (0-2.0) 03/23/18 07:20 Myelocytes % (Man) 2 % (0-2) 03/23/18 07:20 Nucleated RBC % 0 % (0-0) 03/23/18 07:20 Platelet Estimate Adequate 03/23/18 07:20 Platelet Comment Rare giant plts 03/23/18 07:20 Sodium 140 mmol/L (136-145) 03/22/18 07:50 Potassium 4.1 mmol/L (3.5-5.1) 03/22/18 07:50 Chloride 104 mmol/L (98-107) 03/22/18 07:50 Carbon Dioxide 28 mmol/L (21-32) 03/22/18 07:50 Anion Gap 8 MMOL/L (8-16) 03/22/18 07:50 BUN 13 mg/dL (7-18) 03/22/18 07:50 Creatinine 0.9 mg/dL (0.55-1.3) 03/22/18 07:50 Creat Clearance w eGFR > 60 (>60) 03/22/18 07:50 Random Glucose 100 mg/dL (74-106) 03/22/18 07:50 Calcium 9.4 mg/dL (8.5-10.1) 03/22/18 07:50 Total Bilirubin 0.7 mg/dL (0.2-1) 03/22/18 07:50 AST 57 U/L (15-37) H 03/22/18 07:50 ALT 108 U/L (13-61) H 03/22/18 07:50 Alkaline Phosphatase 87 U/L (45-117) 03/22/18 07:50 Total Protein 8.1 g/dl (6.4-8.2) 03/22/18 07:50 Albumin 3.4 g/dl (3.4-5.0) 03/22/18 07:50 RPR Titer Nonreactive (NONREACTIVE) 03/22/18 07:50 lab noted - Treatment Hospital Course: Detox Protocol Followed, Responded well Patient has Accepted a Rehab Referral to: as per counselor arrangement - Medication Discharge Medications: Ambulatory Orders NK [No Known Home Medication] 05/07/17 - Diagnosis (1) Opioid dependence with withdrawal Status: Acute (2) Weight loss Status: Acute (3) Nicotine dependence Status: Acute Qualifiers: Nicotine product type: cigarettes Substance use status: in withdrawal Qualified Code(s): F17.213 - Nicotine dependence, cigarettes, with withdrawal - AMA Did Patient Leave Against Medical Advice: Yes
[2018-03-25] MEDS ORDERED: METHADONE HCL 5 MG TABLET (FOR DETOX USE ONLY) PO ONE (06:00)
== END 2018-03-23 10:32 | disposition left against medical advice (07) | DRG 770 ==
LOC: YASAS 13:09 → Y3N 17:07
PROVIDERS: ADMIT Neuromusculoskeletal Medicine & OMM; ATTEND Neuromusculoskeletal Medicine & OMM
PROC: HZ2ZZZZ Detoxification Services for Substance Abuse Treatment (ICD-10-PCS; principal; 2018-03-20)
DX: F11.23 Opioid dependence with withdrawal (principal); F12.10 Cannabis abuse, uncomplicated; F17.213 Nicotine dependence, cigarettes, with withdrawal; D72.829 Elevated white blood cell count, unspecified; R11.10 Vomiting, unspecified; B18.2 Chronic viral hepatitis C
CPT/HCPCS: 36415; 80053; 85025; 85027; 86593; Q0162

== ENCOUNTER 2022-07-19 01:55 | Inpatient (IN) | payer OTHER ==
[2022-07-19 02:35] VITALS: BMI 22.5
[2022-07-19] MEDS ORDERED: BISMUTH SUBSALICYLATE 524 MG/30 ML PO PRN (03:17)
[2022-07-19] MEDS ORDERED: MAGNESIUM HYDROX 2400MG/30ML ORAL SUSPENSION 30 ML CUP PO PRN (03:17)
[2022-07-19] MEDS ORDERED: NALOXONE HCL (KLOXXADO) 8 MG SPRAY NS PRN (03:17)
[2022-07-19] MEDS ORDERED: LOPERAMIDE HCL 2 MG CAPSULE PO PRN (03:17)
[2022-07-19] MEDS ORDERED: BENZOCAINE/MENTHOL (CHLORASEPTIC ) LOZENGE MM PRN (03:17)
[2022-07-19] MEDS ORDERED: IBUPROFEN 400 MG TABLET (FP) PO PRN (03:17)
[2022-07-19] MEDS ORDERED: METHOCARBAMOL 500 MG TABLET PO PRN (03:17)
[2022-07-19] MEDS ORDERED: NALOXONE HCL 0.4 MG/ML VIAL IM PRN (03:17)
[2022-07-19] MEDS ORDERED: BENZONATATE 200 MG CAPSULE PO PRN (03:17)
[2022-07-19] MEDS ORDERED: MAG HYDROX/AL HYDROX/SIMETH 30 ML UNIT-DOSE CUP PO PRN (03:17)
[2022-07-19] MEDS ORDERED: ACETAMINOPHEN 325 MG TABLET (FP) PO PRN (03:17)
[2022-07-19] MEDS ORDERED: IBUPROFEN 600 MG TABLET (FP) PO PRN (03:17)
[2022-07-19] MEDS ORDERED: DICYCLOMINE HCL 10 MG CAPSULE PO PRN (03:17)
[2022-07-19] MEDS ORDERED: methaDONE HCL 10 MG TABLET (FOR DETOX USE ONLY) PO ONE (03:17)
[2022-07-19] MEDS ORDERED: guaiFENesin 600 MG TABLET.ER (FP) PO PRN (03:17)
[2022-07-19] MEDS ORDERED: POLYETHYLENE GLYCOL (HEALTHYLAX) 3350 17 GM PACKET PO PRN (03:17)
[2022-07-19] MEDS ORDERED: NICOTINE 10 MG CARTRIDGE (INHALER) IH PRN (03:17)
[2022-07-19] MEDS ORDERED: methaDONE HCL 10 MG TABLET (FOR DETOX USE ONLY) ONE (03:33)
[2022-07-19] MEDS ORDERED: TRIMETHOBENZAMIDE HCL 200MG/2ML INJ IM ONE ×2 (05:50→12:00)
[2022-07-19] MEDS ORDERED: PRENATAL VITAMINS W/ FOLIC ACID TABLET (FP) PO SCH (10:00)
[2022-07-19] MEDS ORDERED: NICOTINE 21 MG/24 HOURS TOPICAL PATCH TD SCH (10:00)
[2022-07-19] MEDS: ONDANSETRON *ODT* 4 MG TABLET SL PRN ×2 (10:09→16:45)
[2022-07-19] MEDS: diazePAM 5 MG TABLET PO PRN ×2 (13:06→16:57)
[2022-07-19] MEDS: cloNIDine HCL 0.1 MG TABLET PO PRN ×2 (13:06→16:58)
[2022-07-19 13:46] VITALS: RESP 17
[2022-07-19 16:43] VITALS: BP 159/126; PULSE 129; TEMP 98.2
[2022-07-19] MEDS ORDERED: THIAMINE HCL 100 MG TABLET (FP) PO SCH (22:00)
[2022-07-19] MEDS ORDERED: MELATONIN 5 MG TABLETS PO SCH (22:00)
[2022-07-21] MEDS ORDERED: methaDONE HCL 10 MG TABLET (FOR DETOX USE ONLY) PO ONE (10:00)
[2022-07-23] MEDS ORDERED: methaDONE HCL 10 MG TABLET (FOR DETOX USE ONLY) PO ONE (10:00)
== END 2022-07-20 08:04 | disposition short-term general hospital (02) | DRG 773 ==
LOC: YASAS 01:55 → Y6N 04:32
PROVIDERS: ADMIT Allergy & Immunology; ATTEND Allergy & Immunology
PROC: HZ2ZZZZ Detoxification Services for Substance Abuse Treatment (ICD-10-PCS; principal; 2022-07-19)
DX: F11.23 Opioid dependence with withdrawal (principal); F17.210 Nicotine dependence, cigarettes, uncomplicated; B18.2 Chronic viral hepatitis C; R11.2 Nausea with vomiting, unspecified; Z56.0 Unemployment, unspecified; Z59.00 Homelessness unspecified
CPT/HCPCS: 93005; 93010; C9803-CS; Q0162; U0003; U0005

== ENCOUNTER 2022-07-19 18:40 | Inpatient (IN) | payer OTHER ==
[2022-07-19] MEDS ORDERED: LACTATED RINGERS SOLUTION 1000 ML INFUS.BAG IV ONE (19:24)
[2022-07-19] MEDS ORDERED: MAGNESIUM SULF 50% (8.12 MEQ/2 ML-1 GM VIAL) IVPB ONE (19:24)
[2022-07-19] MEDS ORDERED: FAMOTIDINE 20 MG/50 ML IVPB 20 MG/50 ML MG IVPB ONE ×2 (19:24→20:16)
[2022-07-19] MEDS ORDERED: PROMETHAZINE HCL 25 MG/1 ML VIAL IVPB ONE (19:25)
[2022-07-19] MEDS ORDERED: DICYCLOMINE HCL 20 MG/2 ML AMPUL IM ONE (19:26)
[2022-07-19] MEDS ORDERED: cloNIDine HCL 0.1 MG TABLET PO ONE (19:26)
[2022-07-19] MEDS ORDERED: ADENOSINE 6 MG/2 ML VIAL IVPUSH ONE ×4 (19:50→20:09)
[2022-07-19] MEDS ORDERED: HALOPERIDOL LACTATE 5 MG/ML IM ONE ×2 (20:03→20:11)
[2022-07-19] MEDS ORDERED: LORazepam 2 MG/ML SDV VIAL IVPUSH ONE (20:10)
[2022-07-19] MEDS ORDERED: MAGNESIUM SULFATE IN WATER 2 GM/50 ML IVPB IVPB ONE (20:16)
[2022-07-19 20:27] LABS: VENOUS BASE EXCESS 4.6 mmol/L (-2-2); VENOUS O2 SATURATION 87.9 % (70-80); VENOUS PCO2 32.5 mmHg (38-52); VENOUS PH 7.53 (7.310-7.410)
[2022-07-19 20:36] LABS: BASO % 0.2 % (0-2.0); HEMATOCRIT 47.9 % (35.4-49); HEMOGLOBIN 16.2 GM/dL (11.7-16.9); LYMPH % 17.3 % (8-40); MCH 28.3 pg (25.7-33.7); MCHC 33.8 g/dl (32.0-35.9); MEAN CELL VOLUME 83.8 fl (80-96); MEAN PLT VOLUME 7.9 fl (7.5-11.1); MONO % 3.1 % (3.8-10.2); NEUT % 79.4 % (42.8-82.8); PLATELET COUNT 518 10^3/uL (134-434); RBC 5.72 M/mm3 (4.00-5.60); RDW 17.1 % (11.9-15.9); WHITE BLOOD COUNT 16.7 K/mm3 (4.0-10.0)
[2022-07-19 20:43] LABS: INR 1.12 (0.83-1.09)
[2022-07-19 20:46] LABS: ACTIVATED PTT 31.8 SECONDS (25.2-36.5)
[2022-07-19 20:50] LABS: CHLORIDE 99 mmol/L (98-107); SODIUM 128 mmol/L (136-145)
[2022-07-19 20:53] LABS: CALCIUM 9.9 mg/dL (8.5-10.1)
[2022-07-19 20:54] LABS: ALBUMIN 3.5 g/dl (3.4-5.0); BLOOD UREA NITROGEN 18.3 mg/dL (7-18); CO2 25 mmol/L (21-32); GLUCOSE,RANDOM 134 mg/dL (74-106); MAGNESIUM 2.2 mg/dL (1.8-2.4)
[2022-07-19 21:01] LABS: ALK PHOS 111 U/L (45-117)
[2022-07-19 21:02] LABS: N-TERMINAL BNP 1704.2 pg/ml (5-125)
[2022-07-19] MEDS ORDERED: ACETAMINOPHEN 325 MG TABLET (FP) ONE (21:12)
[2022-07-19] MEDS ORDERED: ONDANSETRON *ODT* 4 MG TABLET ONE (21:13)
[2022-07-19 21:43] LABS: ANION GAP 5 MMOL/L (8-16); POTASSIUM > 10.0 mmol/L (3.5-5.1); SGOT/AST 250 U/L (15-37)
[2022-07-19 23:02] LABS: POTASSIUM 4.4 mmol/L (3.5-5.1)
[2022-07-19 23:05] LABS: ALBUMIN 3.4 g/dl (3.4-5.0); BLOOD UREA NITROGEN 15.7 mg/dL (7-18); CALCIUM 8.8 mg/dL (8.5-10.1)
[2022-07-19 23:08] LABS: CREATININE 0.7 mg/dL (0.55-1.3)
[2022-07-19 23:10] LABS: BILIRUBIN,TOTAL 0.5 mg/dL (0.2-1); TOT PROT 8.1 g/dl (6.4-8.2)
[2022-07-20] MEDS ORDERED: TRIMETHOBENZAMIDE HCL 200MG/2ML INJ IM PRN (00:39)
[2022-07-20] MEDS ORDERED: dilTIAZem HCL 50 MG/10 ML - 10 ML VIAL IVPUSH PRN ×2 (00:40→15:00)
[2022-07-20] MEDS ORDERED: ADENOSINE 6 MG/2 ML VIAL IVPUSH ONE ×6 (00:41→04:34)
[2022-07-20] MEDS ORDERED: DICYCLOMINE HCL 10 MG CAPSULE PO PRN (01:12)
[2022-07-20] MEDS ORDERED: LACTATED RINGERS SOLUTION 1,000 ML/1,000 ML INFUS.BAG IV SCH ×2 (01:15→01:27)
[2022-07-20] MEDS ORDERED: LORazepam 2 MG/ML SDV VIAL IVPUSH PRN ×3 (01:18→04:39)
[2022-07-20] MEDS ORDERED: methaDONE HCL 10 MG TABLET (FOR DETOX USE ONLY) PO ONE (01:28)
[2022-07-20] MEDS ORDERED: cloNIDine HCL 0.1 MG TABLET PO PRN (01:28)
[2022-07-20] MEDS ORDERED: PROCHLORPERAZINE INJECTION 10 MG/2 ML VIAL IVPB PRN (01:30)
[2022-07-20] MEDS: TRIMETHOBENZAMIDE HCL 200MG/2ML INJ IM SCH ×3 (05:06→17:33)
[2022-07-20 07:27] LABS: EPI CELLS 4 /uL (0-25.1); HYALINE CASTS 0 /uL (0-3.1); URINE APPEARANCE CLEAR; URINE BACTERIA 2 /uL (0-1359); URINE BILIRUBIN NEGATIVE (NEGATIVE); URINE COLOR YELLOW; URINE GLUCOSE (UA) NEGATIVE (NEGATIVE); URINE KETONE NEGATIVE (NEGATIVE); URINE LEUK ESTERASE NEGATIVE (NEGATIVE); URINE NITRITE NEGATIVE (NEGATIVE); URINE PROTEIN 2+ (NEGATIVE); URINE RBC 7 /uL (0-23.9); URINE WBC 1 /uL (0-25.8)
[2022-07-20] MEDS: ENOXAPARIN NA (PORCINE) 40 MG/0.4 ML DISP.SYRIN SQ SCH (11:00)
[2022-07-20] MEDS ORDERED: methaDONE HCL 10 MG TABLET PO ONE (15:45)
[2022-07-21 07:43] LABS: CHLORIDE 106 mmol/L (98-107); POTASSIUM 4.1 mmol/L (3.5-5.1); SODIUM 137 mmol/L (136-145)
[2022-07-21 07:48] LABS: CALCIUM 9.5 mg/dL (8.5-10.1)
[2022-07-21 07:49] LABS: ALBUMIN 3.7 g/dl (3.4-5.0); ANION GAP 8 MMOL/L (8-16); CO2 24 mmol/L (21-32); GLUCOSE,RANDOM 97 mg/dL (74-106); MAGNESIUM 1.9 mg/dL (1.8-2.4)
[2022-07-21 07:52] LABS: CREATININE 0.8 mg/dL (0.55-1.3); PHOSPHOROUS 3.3 mg/dL (2.5-4.9); SGOT/AST 77 U/L (15-37); SGPT/ALT 136 U/L (13-61)
[2022-07-21 07:53] LABS: TOT PROT 8.5 g/dl (6.4-8.2)
[2022-07-21 07:54] LABS: ALK PHOS 101 U/L (45-117)
[2022-07-21 08:00] LABS: BASO % 0.7 % (0-2.0); EOS % 0.3 % (0-4.5); HEMATOCRIT 47.2 % (35.4-49); HEMOGLOBIN 16.2 GM/dL (11.7-16.9); LYMPH % 31.7 % (8-40); MCH 29.2 pg (25.7-33.7); MCHC 34.4 g/dl (32.0-35.9); MEAN PLT VOLUME 8.4 fl (7.5-11.1); MONO % 8.4 % (3.8-10.2); NEUT % 58.9 % (42.8-82.8); PLATELET COUNT 397 10^3/uL (134-434); RBC 5.55 M/mm3 (4.00-5.60); RDW 16.5 % (11.9-15.9)
[2022-07-21] MEDS: ENOXAPARIN NA (PORCINE) 40 MG/0.4 ML DISP.SYRIN SQ SCH (09:23)
[2022-07-21] MEDS ORDERED: methaDONE HCL 10 MG TABLET PO ONE (10:00)
[2022-07-21 16:59] VITALS: BMI 21.1
[2022-07-22 08:32] LABS: HEMATOCRIT 48.9 % (35.4-49); HEMOGLOBIN 16.3 GM/dL (11.7-16.9); MCH 28.4 pg (25.7-33.7); MCHC 33.4 g/dl (32.0-35.9); MEAN CELL VOLUME 85.1 fl (80-96); MEAN PLT VOLUME 7.7 fl (7.5-11.1); PLATELET COUNT 436 10^3/uL (134-434); RBC 5.74 M/mm3 (4.00-5.60); RDW 16.6 % (11.9-15.9); WHITE BLOOD COUNT 12.6 K/mm3 (4.0-10.0)
[2022-07-22 08:43] LABS: POTASSIUM 4.3 mmol/L (3.5-5.1)
[2022-07-22 08:47] LABS: CALCIUM 9.3 mg/dL (8.5-10.1)
[2022-07-22 08:48] LABS: ALBUMIN 3.7 g/dl (3.4-5.0); BLOOD UREA NITROGEN 22.8 mg/dL (7-18); MAGNESIUM 2.2 mg/dL (1.8-2.4)
[2022-07-22 08:51] LABS: CREATININE 0.8 mg/dL (0.55-1.3); PHOSPHOROUS 3.3 mg/dL (2.5-4.9)
[2022-07-22 08:52] LABS: BILIRUBIN,TOTAL 1.3 mg/dL (0.2-1); TOT PROT 8.2 g/dl (6.4-8.2)
[2022-07-22] MEDS ORDERED: methaDONE HCL 10 MG TABLET (FOR DETOX USE ONLY) PO ONE (10:00)
[2022-07-22] MEDS: ENOXAPARIN NA (PORCINE) 40 MG/0.4 ML DISP.SYRIN SQ SCH (10:08)
[2022-07-23 07:25] LABS: BASO % 0.9 % (0-2.0); EOS % 2.7 % (0-4.5); HEMATOCRIT 47.9 % (35.4-49); HEMOGLOBIN 16.2 GM/dL (11.7-16.9); LYMPH % 37.2 % (8-40); MCH 28.8 pg (25.7-33.7); MCHC 33.9 g/dl (32.0-35.9); MEAN CELL VOLUME 85.1 fl (80-96); MEAN PLT VOLUME 8.1 fl (7.5-11.1); MONO % 11.8 % (3.8-10.2); NEUT % 47.4 % (42.8-82.8); PLATELET COUNT 406 10^3/uL (134-434); RBC 5.63 M/mm3 (4.00-5.60); RDW 16.5 % (11.9-15.9); WHITE BLOOD COUNT 11.9 K/mm3 (4.0-10.0)
[2022-07-23 07:49] LABS: POTASSIUM 4.6 mmol/L (3.5-5.1)
[2022-07-23 07:51] LABS: BLOOD UREA NITROGEN 24.3 mg/dL (7-18); CALCIUM 9.2 mg/dL (8.5-10.1)
[2022-07-23 07:54] LABS: CREATININE 0.7 mg/dL (0.55-1.3)
[2022-07-23] MEDS: ENOXAPARIN NA (PORCINE) 40 MG/0.4 ML DISP.SYRIN SQ SCH (09:12)
[2022-07-23] MEDS ORDERED: methaDONE HCL 10 MG TABLET PO ONE (10:00)
[2022-07-23 12:03] LABS: MAGNESIUM 2.1 mg/dL (1.8-2.4)
[2022-07-23] MEDS ORDERED: TRIMETHOBENZAMIDE HCL 200MG/2ML INJ IM PRN (16:18)
[2022-07-24] MEDS ORDERED: methaDONE HCL 10 MG TABLET (FOR DETOX USE ONLY) PO ONE (10:00)
[2022-07-24] MEDS: ENOXAPARIN NA (PORCINE) 40 MG/0.4 ML DISP.SYRIN SQ SCH (10:25)
[2022-07-24] MEDS ORDERED: CARBAMIDE PEROXIDE 6.5% OTIC 15 ML BOTTLE AD SCH (11:15)
[2022-07-24 15:20] VITALS: BP 118/78; PULSE 73; RESP 17; TEMP 98.2
== END 2022-07-24 18:28 | disposition home or self-care (01) | DRG 773 ==
LOC: JER 18:40 → JERBED 20:35 → J4W 07-20 04:10
PROVIDERS: ADMIT Internal Medicine; ATTEND Internal Medicine
PROC: HZ2ZZZZ Detoxification Services for Substance Abuse Treatment (ICD-10-PCS; principal; 2022-07-19)
DX: F11.23 Opioid dependence with withdrawal (principal); I47.1 Supraventricular tachycardia; I10 Essential (primary) hypertension; D72.829 Elevated white blood cell count, unspecified; F19.10 Other psychoactive substance abuse, uncomplicated; R11.2 Nausea with vomiting, unspecified; D75.839 Thrombocytosis, unspecified; R74.01 Elevation of levels of liver transaminase levels
CPT/HCPCS: 0241U-QW; 36415; 71045-TC-FY; 80048; 80053; 81003; 82550; 82553; 82803; 83605; 83690; 83735; 83880; 84100; 84439; 84443; 84484; 85025; 85027; 85610; 85730; 87040; 87086; 93005; 93010; 93306-TC; 99285-25

== ENCOUNTER 2024-01-01 20:18 | Inpatient (IN) | payer OTHER ==
[2024-01-01 22:20] VITALS: BMI 20.9
[2024-01-02] MEDS ORDERED: NALOXONE (NYS OPIOID OVERDOSE PROGRAM) 4 MG/0.1 ML SPRAY NS PRN (02:27)
[2024-01-02] MEDS ORDERED: BENZONATATE 200 MG CAPSULE PO PRN (02:27)
[2024-01-02] MEDS ORDERED: BISMUTH SUBSALICYLATE 524 MG/30 ML PO PRN (02:27)
[2024-01-02] MEDS ORDERED: guaiFENesin 600 MG TABLET.ER (FP) PO PRN (02:27)
[2024-01-02] MEDS ORDERED: NALOXONE (NARCAN) HCL 4 MG/0.1 ML SPRAY NS PRN (02:27)
[2024-01-02] MEDS ORDERED: DICYCLOMINE HCL 10 MG CAPSULE PO PRN (02:27)
[2024-01-02] MEDS ORDERED: BENZOCAINE/MENTHOL (CHLORASEPTIC ) LOZENGE MM PRN (02:27)
[2024-01-02] MEDS ORDERED: LOPERAMIDE HCL 2 MG CAPSULE PO PRN (02:27)
[2024-01-02] MEDS ORDERED: ONDANSETRON *ODT* 4 MG TABLET SL PRN (02:27)
[2024-01-02] MEDS ORDERED: MAGNESIUM HYDROX 2400MG/30ML ORAL SUSPENSION 30 ML CUP PO PRN (02:27)
[2024-01-02] MEDS ORDERED: IBUPROFEN 600 MG TABLET (FP) PO PRN (02:27)
[2024-01-02] MEDS ORDERED: ACETAMINOPHEN 325 MG TABLET (FP) PO PRN (02:27)
[2024-01-02] MEDS ORDERED: IBUPROFEN 400 MG TABLET (FP) PO PRN (02:27)
[2024-01-02] MEDS ORDERED: MAG HYDROX/AL HYDROX/SIMETH 30 ML UNIT-DOSE CUP PO PRN (02:27)
[2024-01-02] MEDS ORDERED: POLYETHYLENE GLYCOL (HEALTHYLAX) 3350 17 GM PACKET PO PRN (02:27)
[2024-01-02] MEDS ORDERED: cloNIDine HCL 0.1 MG TABLET PO PRN (02:30)
[2024-01-02] MEDS: methaDONE HCL 10 MG TABLET (FOR DETOX USE ONLY) PO ONE ×2 (03:10→09:39)
[2024-01-02] MEDS: PRENATAL VITAMINS W/ FOLIC ACID TABLET (FP) PO SCH (09:06)
[2024-01-02] MEDS: cloNIDine HCL 0.1 MG TABLET PO SCH (09:39)
[2024-01-02] MEDS: MELATONIN 5 MG TABLETS PO SCH (22:26)
[2024-01-02] MEDS: THIAMINE 100 MG TABLET PO SCH (22:26)
[2024-01-03] MEDS: methaDONE 40 MG, methaDONE 10 MG PO ONE (09:52)
[2024-01-03 11:55] LABS: POTASSIUM 4.2 mmol/L (3.5-5.1)
[2024-01-03 11:56] LABS: HEMATOCRIT 43.3 % (35.4-49); HEMOGLOBIN 14.5 GM/dL (11.7-16.9); MCHC 33.5 g/dl (32.0-35.9); MEAN CELL VOLUME 89.4 fl (80-96); MEAN PLT VOLUME 8.8 fl (7.5-11.1); PLATELET COUNT 336 10^3/uL (134-434); RBC 4.84 M/mm3 (4.00-5.60); RDW 14.8 % (11.9-15.9); WHITE BLOOD COUNT 10.7 K/mm3 (4.0-10.0)
[2024-01-03 12:03] LABS: CALCIUM 9.1 mg/dL (8.5-10.1)
[2024-01-03 12:04] LABS: ALBUMIN 3.5 g/dl (3.4-5.0); BLOOD UREA NITROGEN 20.8 mg/dL (7-18)
[2024-01-03 12:07] LABS: CREATININE 0.7 mg/dL (0.55-1.3)
[2024-01-03 12:08] LABS: BILIRUBIN,TOTAL 0.5 mg/dL (0.2-1)
[2024-01-03] MEDS: hydrOXYzine PAMOATE 25 MG CAPSULE (FP) PO PRN (22:10)
[2024-01-03] MEDS: METHOCARBAMOL 500 MG TABLET PO PRN (22:10)
[2024-01-04] MEDS ORDERED: cloNIDine HCL 0.1 MG TABLET PO PRN
[2024-01-04] MEDS: methaDONE 40 MG, methaDONE 20 MG PO ONE (09:39)
[2024-01-04] MEDS ORDERED: methaDONE HCL 10 MG TABLET (FOR DETOX USE ONLY) PO ONE (10:00)
[2024-01-05] MEDS: methaDONE 40 MG, methaDONE 30 MG PO ONE (09:53)
[2024-01-06] MEDS: methaDONE HCL 40 MG DISPERSABLE TABLET PO ONE (09:20)
[2024-01-06] MEDS ORDERED: methaDONE HCL 10 MG TABLET (FOR DETOX USE ONLY) PO ONE (10:00)
[2024-01-07 06:05] VITALS: BP 113/81; PULSE 62; RESP 16; TEMP 98.9
[2024-01-07] MEDS: methaDONE 80 MG, methaDONE 10 MG PO ONE (08:43)
[2024-01-07] MEDS ORDERED: methaDONE 80 MG, methaDONE 10 MG PO ONE (10:00)
== END 2024-01-07 08:30 | disposition home or self-care (01) | DRG 773 ==
LOC: YASAS 20:18 → Y3N 01-02 02:47
PROVIDERS: ADMIT Allergy & Immunology; ATTEND Surgery
PROC: HZ2ZZZZ Detoxification Services for Substance Abuse Treatment (ICD-10-PCS; principal; 2024-01-02)
DX: F11.23 Opioid dependence with withdrawal (principal); F14.20 Cocaine dependence, uncomplicated; F12.20 Cannabis dependence, uncomplicated; F31.9 Bipolar disorder, unspecified; F41.9 Anxiety disorder, unspecified; B18.2 Chronic viral hepatitis C
CPT/HCPCS: 36415; 80053; 80305; 80307; 85027; 86780; 93005; 93010

== ENCOUNTER 2024-02-12 15:09 | Inpatient (IN) | payer OTHER ==
[2024-02-12 16:26] VITALS: BMI 24.9
[2024-02-12] MEDS ORDERED: MAGNESIUM HYDROX 2400MG/30ML ORAL SUSPENSION 30 ML CUP PO PRN (17:45)
[2024-02-12] MEDS ORDERED: NICOTINE POLACRILEX 2 MG LOZENGE BC PRN (17:45)
[2024-02-12] MEDS ORDERED: IBUPROFEN 600 MG TABLET (FP) PO PRN (17:45)
[2024-02-12] MEDS ORDERED: LOPERAMIDE HCL 2 MG CAPSULE PO PRN (17:45)
[2024-02-12] MEDS ORDERED: POLYETHYLENE GLYCOL (HEALTHYLAX) 3350 17 GM PACKET PO PRN (17:45)
[2024-02-12] MEDS ORDERED: guaiFENesin 600 MG TABLET.ER (FP) PO PRN (17:45)
[2024-02-12] MEDS ORDERED: MAG HYDROX/AL HYDROX/SIMETH 30 ML UNIT-DOSE CUP PO PRN (17:45)
[2024-02-12] MEDS ORDERED: BENZOCAINE/MENTHOL (CHLORASEPTIC ) LOZENGE MM PRN (17:45)
[2024-02-12] MEDS ORDERED: IBUPROFEN 400 MG TABLET (FP) PO PRN (17:45)
[2024-02-12] MEDS ORDERED: NALOXONE (NARCAN) HCL 4 MG/0.1 ML SPRAY NS PRN (17:45)
[2024-02-12] MEDS ORDERED: ACETAMINOPHEN 325 MG TABLET (FP) PO PRN (17:45)
[2024-02-12] MEDS ORDERED: BENZONATATE 200 MG CAPSULE PO PRN (17:45)
[2024-02-12] MEDS ORDERED: NICOTINE POLACRILEX 2 MG GUM BUC PRN (17:45)
[2024-02-12] MEDS: THIAMINE 100 MG TABLET PO SCH (22:18)
[2024-02-12] MEDS: MELATONIN 5 MG TABLETS PO SCH (22:18)
[2024-02-13] MEDS: PRENATAL VITAMINS W/ FOLIC ACID TABLET (FP) PO SCH (10:12)
[2024-02-13] MEDS: FLU VACCINE (FLULAVAL) PF 45 MCG/0.5 ML SYRINGE 2024-2025 IM ONE (11:03)
[2024-02-13] MEDS ORDERED: methaDONE HCL 10 MG TABLET PO SCH (11:15)
[2024-02-13 12:22] LABS: HEMOGLOBIN 14.2 GM/dL (11.7-16.9); MCH 29.8 pg (25.7-33.7); MCHC 32.9 g/dl (32.0-35.9); MEAN CELL VOLUME 90.4 fl (80-96); MEAN PLT VOLUME 8.3 fl (7.5-11.1); PLATELET COUNT 271 10^3/uL (134-434); RBC 4.75 M/mm3 (4.00-5.60); RDW 14.7 % (11.9-15.9); WHITE BLOOD COUNT 8.5 K/mm3 (4.0-10.0)
[2024-02-13 12:33] LABS: CALCIUM 9.1 mg/dL (8.5-10.1)
[2024-02-13 12:34] LABS: ALBUMIN 3.5 g/dl (3.4-5.0); BLOOD UREA NITROGEN 23.4 mg/dL (7-18)
[2024-02-13 12:36] LABS: CREATININE 0.8 mg/dL (0.55-1.3)
[2024-02-13 12:38] LABS: BILIRUBIN,TOTAL 0.6 mg/dL (0.2-1)
[2024-02-13 13:38] LABS: HIV INTERPRETATION NEGATIVE (NEGATIVE)
[2024-02-13] MEDS ORDERED: TUBERCULIN PPD 5 TU/0.1ML VIAL ID ONE (20:00)
[2024-02-15] MEDS: hydrOXYzine PAMOATE 25 MG CAPSULE (FP) PO PRN (21:40)
[2024-02-16 04:47] LABS: PH,URINE 5.5 (5.0-8.0); URINE APPEARANCE CLEAR; URINE BILIRUBIN NEGATIVE (NEGATIVE); URINE COLOR YELLOW; URINE GLUCOSE (UA) NEGATIVE (NEGATIVE); URINE KETONE NEGATIVE (NEGATIVE); URINE LEUK ESTERASE NEGATIVE (NEGATIVE); URINE NITRITE NEGATIVE (NEGATIVE); URINE PROTEIN TRACE (NEGATIVE); URINE UROBILINOGEN 0.2 mg/dL (0.2-1.0)
[2024-02-16] MEDS: P-EPHED 60MG/TRIPROLIDI 2.5MG TABLET PO PRN (23:32)
[2024-02-18] MEDS: SUVOREXANT 10 MG TABLET PO PRN (21:23)
[2024-02-20] MEDS ORDERED: SUVOREXANT 10 MG TABLET PO PRN (22:00)
[2024-02-21] MEDS ORDERED: NICOTINE POLACRILEX 4 MG GUM BUC PRN (12:42)
[2024-02-21] MEDS ORDERED: methaDONE HCL 40 MG DISPERSABLE TABLET PO SCH (12:43)
[2024-02-21] MEDS: BACLOFEN 10 MG TABLET (FP) PO SCH (14:58)
[2024-02-22] MEDS: methaDONE 80 MG, methaDONE 10 MG PO SCH (06:15)
[2024-02-28] MEDS: SUVOREXANT 10 MG TABLET PO PRN (23:07)
[2024-02-29] MEDS: SUVOREXANT 10 MG TABLET PO PRN (22:08)
[2024-03-01] MEDS: NALOXONE (NYS OPIOID OVERDOSE PROGRAM) 4 MG/0.1 ML SPRAY NS SCH (13:05)
[2024-03-02] MEDS: NALOXONE (NYS OPIOID OVERDOSE PROGRAM) 4 MG/0.1 ML SPRAY NS ONE (11:07)
[2024-03-04 06:36] VITALS: RESP 18
[2024-03-10 07:02] VITALS: BP 131/74; PULSE 71; TEMP 97.4
[2024-03-10] MEDS ORDERED: NALOXONE (NYS OPIOID OVERDOSE PROGRAM) 4 MG/0.1 ML SPRAY NS PRN ×2 (10:00→11:00)
== END 2024-03-10 10:58 | disposition home or self-care (01) | DRG 772 ==
LOC: YASAS 15:09 → Y5N 20:25 → Y3NR 02-28 13:30 → Y5N 03-01 10:47 → Y3NR 03-01 11:11 → Y5N 03-01 11:56
PROVIDERS: ADMIT Psychiatry & Neurology Pain Medicine; ATTEND Psychiatry & Neurology Pain Medicine
PROC: HZ42ZZZ Group Counseling for Substance Abuse Treatment, Cognitive-Behavioral (ICD-10-PCS; principal; 2024-02-12)
DX: F11.20 Opioid dependence, uncomplicated (principal); F12.20 Cannabis dependence, uncomplicated; F17.210 Nicotine dependence, cigarettes, uncomplicated; F31.9 Bipolar disorder, unspecified; F19.24 Other psychoactive substance dependence with psychoactive substance-induced mood disorder; F41.9 Anxiety disorder, unspecified; G47.00 Insomnia, unspecified; B18.2 Chronic viral hepatitis C; Z20.822 Contact with and (suspected) exposure to COVID-19; Z86.19 Personal history of other infectious and parasitic diseases; Z56.0 Unemployment, unspecified; Z59.00 Homelessness unspecified
CPT/HCPCS: 0241U-QW; 36415; 80053; 81003; 85027; 87389; J0475

== ENCOUNTER 2024-08-31 23:09 | Emergency (ER) | payer OTHER ==
[2024-08-31 23:17] VITALS: BP 118/77; PULSE 68; RESP 18; TEMP 98.2; BMI 22.9
[2024-09-01] MEDS ORDERED: ONDANSETRON *ODT* 4 MG TABLET ONE (00:25)
[2024-09-01] MEDS: ONDANSETRON *ODT* 4 MG TABLET SL ONE (00:29)
[2024-09-01] MEDS ORDERED: ACETAMINOPHEN 325 MG TABLET (FP) ONE (00:38)
[2024-09-01] MEDS: ACETAMINOPHEN 325 MG TABLET (FP) PO ONE (00:40)
== END 2024-09-01 00:47 | disposition home or self-care (01) ==
LOC: JER 23:09
DX: H92.01 Otalgia, right ear (principal); H91.91 Unspecified hearing loss, right ear; R45.1 Restlessness and agitation; R11.10 Vomiting, unspecified
CPT/HCPCS: 99283-25; Q0162